=== PATIENT | male | born 1955 | race Caucasian/White ===

== ENCOUNTER 2019-03-07 04:28 | Emergency (ER) | payer MEDICARE ==
[~2019-03-07] VITALS: Ht 190.5 cm; Wt 123.0 kg
[2019-03-07] MEDS ORDERED: morphine 4 MG/ML inj SYRINge IV ONE (04:40)
[2019-03-07] MEDS ORDERED: ondansetron/PF 4mg/2ml inj IV ONE (04:40)
[2019-03-07 05:13] LABS: BASOPHILS # (AUTO) 0.1 X10'3 (0-0.2); BASOPHILS % (AUTO) 0.9 % (0-1); EOSINOPHILS # (AUTO) 0.2 X10'3 (0-0.9); EOSINOPHILS % (AUTO) 1.9 % (0-6); HEMATOCRIT 44.9 % (42.0-52.0); HEMOGLOBIN 15.4 g/dl (14.0-17.9); LYMPHOCYTES # (AUTO) 1.2 X10'3 (1.1-4.8); LYMPHOCYTES % (AUTO) 13.7 % (21-51); MEAN CORPUSCULAR HEMOGLOBIN 33.1 PG (27.0-31.0); MEAN CORPUSCULAR HGB CONC 34.3 g/dL (33.0-36.5); MEAN CORPUSCULAR VOLUME 96.5 FL (78-98); MEAN PLATELET VOLUME 9.2 FL (7.4-10.4); MONOCYTES # (AUTO) 0.6 X10'3 (0-0.9); NEUTROPHILS # (AUTO) 6.5 X10'3 (1.8-7.7); NEUTROPHILS % (AUTO) 76.5 % (42-75); PLATELET COUNT 171 X10'3 (140-440); RED BLOOD COUNT 4.65 X10'6 (4.70-6.10); RED CELL DISTRIBUTION WIDTH 14.8 % (11.5-14.5); WHITE BLOOD COUNT 8.5 X10'3 (4.5-11.0)
[2019-03-07 05:21] LABS: PARTIAL THROMBOPLASTIN TIME 31 SECONDS (22-32)
[2019-03-07 05:29] LABS: ALANINE AMINOTRANSFERASE 39 U/L (12-78); ALBUMIN 3.6 G/DL (3.4-5.0); ALBUMIN/GLOBULIN RATIO 0.9 (1.1-1.5); ALKALINE PHOSPHATASE 133 IU/L (46-116); ANION GAP 6 (8-16); ASPARTATE AMINO TRANSFERASE 37 U/L (10-37); BILIRUBIN,TOTAL 1.4 MG/DL (0.1-1.0); BLOOD UREA NITROGEN 16 MG/DL (7-18); BUN/CREATININE RATIO 15.7 (5.4-32.0); CALCIUM 9.6 MG/DL (8.5-10.1); CHLORIDE 105 MMOL/L (99-107); CREATININE 1.02 MG/DL (0.60-1.10); GLUCOSE 109 MG/DL (70-104); SODIUM 139 MMOL/L (135-145); TOTAL CARBON DIOXIDE 28.1 MMOL/L (24-32); TOTAL PROTEIN 7.4 G/DL (6.4-8.2); eGFR 74 ML/MIN
[2019-03-07] MEDS ORDERED: ketorolac trometh. 30mg/ml inj. IV ONE (05:35)
[2019-03-07] MEDS ORDERED: HYDR-3965 PO (06:21)
[2019-03-07 08:23] VITALS: BP 141/69
== END 2019-03-07 08:30 | disposition home or self-care (01) ==
LOC: ER 04:29
DX: R07.89 Other chest pain (principal); I25.10 Atherosclerotic heart disease of native coronary artery without angina pectoris; E78.00 Pure hypercholesterolemia, unspecified; I10 Essential (primary) hypertension; I25.2 Old myocardial infarction; E07.9 Disorder of thyroid, unspecified; N40.0 Benign prostatic hyperplasia without lower urinary tract symptoms; C85.90 Non-Hodgkin lymphoma, unspecified, unspecified site; Z98.61 Coronary angioplasty status; Z59.0 Homelessness; Z88.0 Allergy status to penicillin; Z79.899 Other long term (current) drug therapy
CPT/HCPCS: 36415; 71045; 80053; 84484; 85025; 85610; 85730; 93005; 96374; 96375; 99284; J1885; J2270; J2405

== ENCOUNTER 2021-06-19 19:30 | Emergency (ER) | payer MEDICARE ==
[~2021-06-19] VITALS: Ht 177.8 cm; Wt 131.0 kg
[2021-06-19 20:21] LABS: BASOPHILS # (AUTO) 0.1 X10'3 (0-0.2); BASOPHILS % (AUTO) 0.7 % (0-1); EOSINOPHILS # (AUTO) 0.3 X10'3 (0-0.9); EOSINOPHILS % (AUTO) 4.1 % (0-6); HEMATOCRIT 32.1 % (42.0-52.0); HEMOGLOBIN 10.9 g/dl (14.0-17.9); LYMPHOCYTES # (AUTO) 1.8 X10'3 (1.1-4.8); MEAN CORPUSCULAR HEMOGLOBIN 32.9 PG (27.0-31.0); MEAN CORPUSCULAR HGB CONC 34.1 g/dL (33.0-36.5); MEAN CORPUSCULAR VOLUME 96.7 FL (78-98); MEAN PLATELET VOLUME 8.5 FL (7.4-10.4); MONOCYTES # (AUTO) 0.7 X10'3 (0-0.9); MONOCYTES % (AUTO) 8.6 % (2-12); NEUTROPHILS # (AUTO) 4.8 X10'3 (1.8-7.7); NEUTROPHILS % (AUTO) 63.6 % (42-75); PLATELET COUNT 184 X10'3 (140-440); RED BLOOD COUNT 3.32 X10'6 (4.70-6.10); RED CELL DISTRIBUTION WIDTH 15.9 % (11.5-14.5); WHITE BLOOD COUNT 7.6 X10'3 (4.5-11.0)
[2021-06-19 20:47] LABS: ALANINE AMINOTRANSFERASE 33 U/L (12-78); ALBUMIN 3.6 G/DL (3.4-5.0); ALKALINE PHOSPHATASE 115 IU/L (46-116); ANION GAP 13 (8-16); ASPARTATE AMINO TRANSFERASE 30 U/L (10-37); BILIRUBIN,TOTAL 0.9 MG/DL (0.1-1.0); BLOOD UREA NITROGEN 23 MG/DL (7-18); BUN/CREATININE RATIO 21.9 (5.4-32.0); CALCIUM 8.9 MG/DL (8.5-10.1); CHLORIDE 103 MMOL/L (99-107); CREATININE 1.05 MG/DL (0.60-1.10); GLUCOSE 103 MG/DL (70-104); SODIUM 140 MMOL/L (135-145); TOTAL CARBON DIOXIDE 24.3 MMOL/L (24-32); TOTAL PROTEIN 7.2 G/DL (6.4-8.2); eGFR 71 ML/MIN
[2021-06-19] MEDS ORDERED: LIDOcaine 1.5% w/epinephrine 1:200,000 5ml ampul IJ ONE (21:50)
[2021-06-19] MEDS ORDERED: LIDOcaine 1% W/epiNEPHrine 1:100,000 20ml vial IJ ONE (21:55)
[2021-06-19] MEDS ORDERED: CEPH-585 PO (22:37)
[2021-06-19 22:51] VITALS: BP 99/61
== END 2021-06-19 22:55 | disposition home or self-care (01) ==
LOC: ER 19:31
DX: S01.01XA Laceration without foreign body of scalp, initial encounter (principal); S09.90XA Unspecified injury of head, initial encounter; R06.09 Other forms of dyspnea; I25.10 Atherosclerotic heart disease of native coronary artery without angina pectoris; E78.00 Pure hypercholesterolemia, unspecified; I10 Essential (primary) hypertension; I25.2 Old myocardial infarction; Z95.5 Presence of coronary angioplasty implant and graft; Z88.0 Allergy status to penicillin; Z79.2 Long term (current) use of antibiotics; Z59.00 Homelessness unspecified; Z79.82 Long term (current) use of aspirin; W19.XXXA Unspecified fall, initial encounter; Y93.89 Activity, other specified; Y92.89 Other specified places as the place of occurrence of the external cause; Y99.8 Other external cause status
CPT/HCPCS: 12004; 36415; 70450; 71045; 80053; 83880; 84484; 85025; 85610; 93005; 99285

== ENCOUNTER 2024-01-01 11:35 | Day surgery (SDC) | payer MEDICARE ==
[~2024-01-01] VITALS: Ht 180.3 cm; Wt 136.8 kg
[2024-01-01] MEDS ORDERED: [UNRECOGNIZED DRUG - REMARK] IV ONE (12:00)
[2024-01-01] MEDS ORDERED: atropine 0.1mg/ml 10ml syringe IV PRN ×2 (12:00→12:05)
[2024-01-01] MEDS ORDERED: normal saline 500ml IV soln 500 ML IV SCH (12:05)
[2024-01-01] MEDS ORDERED: metoprolol tartrate 1mg/ml inj IV PRN (12:05)
[2024-01-01] MEDS ORDERED: nitroGLYCERIN 0.4mg SUBLingual tab SL PRN (12:05)
[2024-01-01] MEDS ORDERED: DOBUTamine-DoBUTrex 500mg/D5W 250 ML IV SCH (12:05)
[2024-01-01 12:25] VITALS: BP 117/63; PULSE 76; RESP 16; TEMP 98.1; O2SAT 92
[2024-01-01 13:36] VITALS: BP 130/67
== END 2024-01-01 13:50 | disposition home or self-care (01) ==
LOC: SSTAY O 11:35
PROVIDERS: ATTEND Internal Medicine Interventional Cardiology
DX: I08.3 Combined rheumatic disorders of mitral, aortic and tricuspid valves (principal); I11.0 Hypertensive heart disease with heart failure; I50.9 Heart failure, unspecified; I25.10 Atherosclerotic heart disease of native coronary artery without angina pectoris; E78.5 Hyperlipidemia, unspecified; G47.33 Obstructive sleep apnea (adult) (pediatric); E66.3 Overweight; I42.9 Cardiomyopathy, unspecified; Z79.82 Long term (current) use of aspirin; Z79.890 Hormone replacement therapy; Z79.899 Other long term (current) drug therapy; Z95.5 Presence of coronary angioplasty implant and graft; Z68.41 Body mass index [BMI] 40.0-44.9, adult; Z88.0 Allergy status to penicillin; Z88.8 Allergy status to other drugs, medicaments and biological substances
CPT/HCPCS: C8929; J7030; 93306

== ENCOUNTER 2024-02-19 09:59 | Day surgery (SDC) | payer MEDICARE ==
[2024-02-15 11:27] LABS: BASOPHILS # (AUTO) 0.1 X10'3 (0-0.2); BASOPHILS % (AUTO) 0.7 % (0-1); EOSINOPHILS # (AUTO) 0.2 X10'3 (0-0.9); EOSINOPHILS % (AUTO) 2.2 % (0-6); HEMATOCRIT 42.4 % (42.0-52.0); HEMOGLOBIN 14.5 g/dl (14.0-17.9); LYMPHOCYTES # (AUTO) 1.5 X10'3 (1.1-4.8); LYMPHOCYTES % (AUTO) 17.9 % (21-51); MEAN CORPUSCULAR HEMOGLOBIN 31.2 PG (27.0-31.0); MEAN CORPUSCULAR HGB CONC 34.1 g/dL (33.0-36.5); MEAN CORPUSCULAR VOLUME 91.7 FL (78-98); MEAN PLATELET VOLUME 9.3 FL (7.4-10.4); MONOCYTES # (AUTO) 0.5 X10'3 (0-0.9); MONOCYTES % (AUTO) 5.4 % (2-12); NEUTROPHILS # (AUTO) 6.2 X10'3 (1.8-7.7); NEUTROPHILS % (AUTO) 73.8 % (42-75); PLATELET COUNT 171 X10'3 (140-440); RED BLOOD COUNT 4.63 X10'6 (4.70-6.10); RED CELL DISTRIBUTION WIDTH 14.8 % (11.5-14.5); WHITE BLOOD COUNT 8.5 X10'3 (4.5-11.0)
[2024-02-15 11:33] LABS: APTT 33 SECONDS (22-32); PROTHROMBIN TIME 10.8 SECONDS (9.0-12.0)
[2024-02-15 12:16] LABS: ALBUMIN 3.5 G/DL (3.4-5.0); ANION GAP 11 (8-16); BLOOD UREA NITROGEN 17 MG/DL (7-18); BUN/CREATININE RATIO 15.9 (10.0-20.0); CALCIUM 9.1 MG/DL (8.5-10.1); CHLORIDE 102 MMOL/L (99-107); CHOL/HDL RATIO 2.9 (0.00-4.99); CHOLESTEROL 185 MG/DL (0-200); CREATININE 1.07 MG/DL (0.60-1.10); GLUCOSE 122 MG/DL (70-104); HDL CHOLESTEROL 64 MG/DL (35-60); LDL CHOLESTEROL 108 MG/DL (50-100); POTASSIUM 4.2 MMOL/L (3.5-5.1); SODIUM 138 MMOL/L (135-145); TOTAL CARBON DIOXIDE 25.3 MMOL/L (24-32); TRIGLYCERIDES 89 MG/DL (20-135); eGFR 69 ML/MIN
[2024-02-19] VITALS (8 sets, daily range): BP systolic 139–154; BP diastolic 73–93; PULSE 73–81; RESP 16; TEMP 98; O2SAT 94–97
[~2024-02-19] VITALS: Ht 180.3 cm; Wt 135.3 kg
[2024-02-19] MEDS: normal saline 1,000 ML IV SCH (10:35)
[2024-02-19] MEDS ORDERED: LOSA50TA64 PO (10:46)
[2024-02-19] MEDS ORDERED: LEVO88TA7 PO (10:46)
[2024-02-19] MEDS ORDERED: CARV6.253 PO (10:46)
[2024-02-19] MEDS ORDERED: DIPH-1212 PO (10:46)
[2024-02-19] MEDS ORDERED: ASPI-1265 PO (10:46)
[2024-02-19] MEDS ORDERED: PRED20TA PO (10:46)
[2024-02-19] MEDS ORDERED: EMPA10TA PO (10:46)
[2024-02-19] MEDS ORDERED: ATOR40TA72 PO (10:46)
[2024-02-19] MEDS: diphenhydrAMINE 25mg capsule PO PRN (11:39)
[2024-02-19] MEDS: LORazepam 0.5 MG tablet PO PRN (11:40)
[2024-02-19] MEDS ORDERED: iohexol 350MG/ML 100ml bottle IV ONE (12:44)
[2024-02-19] MEDS ORDERED: verapamil 2.5 mg/ml inj IV ONE (12:44)
[2024-02-19] MEDS ORDERED: midazolam 1 mg/ML 2ml injection ONE (12:44)
[2024-02-19] MEDS ORDERED: fentaNYL/PF 50MCG/1 ML 2ML syringe ONE (12:44)
[2024-02-19] MEDS ORDERED: LIDOcaine 1% (10mg/ml) 2ml vial ONE (12:44)
[2024-02-19] MEDS ORDERED: nitroGLYCERIN 500mcg/5mL D5W 5 ML IV ONE (12:46)
[2024-02-19] MEDS ORDERED: heparin 1,000unit/ml 10ml vial 10 ML ONE (12:50)
[2024-02-19] MEDS ORDERED: nitroGLYCERIN 0.4mg SUBLingual tab SL ONE (13:17)
[2024-02-19 14:31] LABS: ISTAT HGB ART 13.9 g/dl (14.0-17.9); ISTAT Hct ART 41 %PCV (42-52); ISTAT O2 SATURATION ARTERIAL 95 % (95-98); ISTAT SOURCE BLNK
[2024-02-19] MEDS ORDERED: HYDROcodone/acetaminophen 10/325mg tab PO PRN (14:40)
[2024-02-19] MEDS ORDERED: HYDROcodone/acetaminophen 5mg/325mg tablet PO PRN (14:40)
[2024-02-20 09:57] LABS: ISTAT HGB MIX 14.6 g/dl (14.0-17.9); ISTAT Hct MIX 43 %PCV (42-52); ISTAT O2 SATURATION MIX VENOUS 70 % (60-80); ISTAT SOURCE BLNK
== END 2024-02-19 16:10 | disposition home or self-care (01) ==
LOC: SSTAY O 09:59
PROVIDERS: ATTEND Student in an Organized Health Care Education/Training Program
DX: I35.0 Nonrheumatic aortic (valve) stenosis (principal); I25.10 Atherosclerotic heart disease of native coronary artery without angina pectoris; I11.0 Hypertensive heart disease with heart failure; I50.9 Heart failure, unspecified; E78.00 Pure hypercholesterolemia, unspecified; I42.9 Cardiomyopathy, unspecified; G47.33 Obstructive sleep apnea (adult) (pediatric); Z98.890 Other specified postprocedural states; Z88.0 Allergy status to penicillin; Z91.041 Radiographic dye allergy status
CPT/HCPCS: 36415; 80048; 80061; 82803; 85014; 85025; 85610; 85730; 93005; 93460; A6258; A6402; C1751; C1894; J1644; J2001; J2250; J3010; J3490; J7030; Q0163; Q9967; Z7610; 99152; 99153

== ENCOUNTER 2024-06-23 05:34 | Inpatient (IN) | payer MEDICARE ==
[2024-06-16 14:53] LABS: BASOPHILS # (AUTO) 0.1 X10'3 (0-0.2); BASOPHILS % (AUTO) 0.7 % (0-1); EOSINOPHILS # (AUTO) 0.3 X10'3 (0-0.9); EOSINOPHILS % (AUTO) 3.2 % (0-6); LYMPHOCYTES # (AUTO) 1.9 X10'3 (1.1-4.8); LYMPHOCYTES % (AUTO) 21.4 % (21-51); MEAN CORPUSCULAR HEMOGLOBIN 31.8 PG (27.0-31.0); MEAN CORPUSCULAR HGB CONC 34.1 g/dL (33.0-36.5); MEAN CORPUSCULAR VOLUME 93.3 FL (78-98); MEAN PLATELET VOLUME 9.5 FL (7.4-10.4); MONOCYTES # (AUTO) 0.6 X10'3 (0-0.9); NEUTROPHILS # (AUTO) 5.9 X10'3 (1.8-7.7); NEUTROPHILS % (AUTO) 67.7 % (42-75); PRE OP HEMATOCRIT 43.8 % (42.0-52.0); PRE OP HEMOGLOBIN 14.9 g/dL (14.0-17.9); PRE OP PLATELET COUNT 164 X10'3 (140-440); PRE OP WHITE BLOOD COUNT 8.7 10'3 (4.8-10.8); RED BLOOD COUNT 4.69 X10'6 (4.70-6.10); RED CELL DISTRIBUTION WIDTH 14.2 % (11.5-14.5)
[2024-06-16 14:57] LABS: BILIRUBIN,URINE NEGATIVE (Neg); CLARITY,URINE CLEAR (Clear); COLOR,URINE YELLOW (Yellow); GLUCOSE, URINE >=1000 mg/dl (Neg); KETONES,URINE NEGATIVE (Neg); LEUKOCYTE ESTERASE ,URINE NEGATIVE (Neg); NITRITES, URINE NEGATIVE (Neg); OCCULT BLOOD,URINE SMALL (Neg); PROTEIN,URINE NEGATIVE (Neg); UROBILINOGEN,URINE 0.2 E.U/dL (0.2-1.0)
[2024-06-16 15:06] LABS: UA COLLECTION TYPE CLN CATCH MIDSTREAM
[2024-06-16 15:13] LABS: BACTERIA,URINE NONE SEEN /HPF (Neg); RBC,URINE 0-2 /HPF (0-2); SQUAMOUS EPITHELIAL CELL,UR NONE SEEN /LPF (FEW); WBC,URINE NONE SEEN /HPF (0-4)
[2024-06-16 15:27] LABS: ALBUMIN 3.7 G/DL (3.4-5.0); ALBUMIN/GLOBULIN RATIO 0.9 (1.1-1.5); ALKALINE PHOSPHATASE 141 IU/L (46-116); BLOOD UREA NITROGEN 18 MG/DL (7-18); BUN/CREATININE RATIO 16.8 (10.0-20.0); CALCIUM 9.2 MG/DL (8.5-10.1); CHLORIDE 107 MMOL/L (99-107); CREATININE 1.07 MG/DL (0.60-1.10); PRE OP ALT 25 U/L (30-65); PRE OP ANION GAP 9 (8-16); PRE OP AST 18 U/L (10-37); PRE OP BILIRUB, TOTAL 1.1 MG/DL (0.0-1.0); PRE OP GLUCOSE 107 MG/DL (70-104); PRE OP POTASSIUM 3.7 MMOL/L (3.4-5.1); PRE OP SODIUM 142 MMOL/L (135-145); TOTAL CARBON DIOXIDE 26.3 MMOL/L (24-32); TOTAL PROTEIN 7.8 G/DL (6.4-8.2); eGFR 69 ML/MIN
[2024-06-16 15:33] LABS: HEMOGLOBIN A1C 5.5 % (4.5-6.2)
[2024-06-16 17:31] LABS: PRE OP PROTIME 10.8 SECONDS (9.0-12.0)
[2024-06-17 06:58] LABS: ABG BASE EXCESS -2.1 mmol/L (-2.0-3.0); ABG HCO3 21.6 mmol/L (21.0-28.0); ABG OXYGEN SATURATION 95.2 % (94.0-98.0); ABG PO2 (T) 77.3 mmHg (83.0-108.0); ALLEN'S TEST POSITIVE; FCOHb 0.1 % (0.5-1.5); FHHb 4.8 % (0.0-5.0); FLOW 0 L/min; FMetHb 0.3 % (0.0-1.5); FO2Hb 94.8 % (94.0-98.0); MODE RA; TOTAL HEMOGLOBIN 14.8 G/dl (13.5-17.5)
[~2024-06-23] VITALS: Ht 177.8 cm; Wt 147.2 kg
[2024-06-23] VITALS (22 sets, daily range): BP systolic 55–143; BP diastolic 11–71; PULSE 65–85; RESP 12–39; TEMP 97.5; O2SAT 95–99
[2024-06-23] MEDS: Cefazolin 3 GM/100ML NS IVPB 100 ML IV ONE (05:30)
[~2024-06-23 05:34] MED LIST: ASPI-1265 PO; ATOR40TA72 PO; CARV6.253 PO; EMPA10TA PO; LEVO88TA7 PO; LOSA50TA64 PO
[2024-06-23] MEDS: mupirocin 2% nasal ointment 1gm UD NS ONE (06:12)
[2024-06-23] MEDS: DOCUMENT DATE & TIME OF BETA-BLOCKER PO ONE (06:13)
[2024-06-23] MEDS: famotidine 20mg tablet PO ONE (06:13)
[2024-06-23] MEDS: metoprolol tartrate 12.5mg (1/2 tablet) PO ONE (06:13)
[2024-06-23] MEDS: ringers solution, lacted 1,000 ML IV SCH (06:14)
[2024-06-23] MEDS: VANCOMYCIN 1,500MG inj. 1,500 MG in normal saline 500ml IV soln 300 ML IV ONE (06:14)
[2024-06-23] MEDS ORDERED: epiNEPHrine 1 mg/ml inj ONE (06:45)
[2024-06-23] MEDS ORDERED: ceFAZolin 1000mg inj ONE (06:46)
[2024-06-23] MEDS ORDERED: BUPIVAcaine 0.5% inj/PF 30 ML ONE (06:46)
[2024-06-23] MEDS ORDERED: vancomycin 1,000mg inj ONE (06:46)
[2024-06-23] MEDS: ceFAZolin 1000mg inj IR ONE (07:22)
[2024-06-23] MEDS ORDERED: SUfentanil 50mcg/ml 1ml amp IV ONE ×2 (07:59)
[2024-06-23] MEDS ORDERED: albuterol 2.5 MG/3 ML nebule CONTNEB PRN (08:15)
[2024-06-23] MEDS ORDERED: LORazepam 2 mg/ml vial ONE (08:26)
[2024-06-23] MEDS: LORazepam 2 mg/ml vial IV ONE (08:30)
[2024-06-23] MEDS ORDERED: isoflurane 100ml inhalation liquid IH ONE (08:30)
[2024-06-23 09:24] LABS: ABG BASE EXCESS -2.3 mmol/L (-2.0-3.0); ABG HCO3 22.1 mmol/L (21.0-28.0); ABG OXYGEN SATURATION 99.3 % (94.0-98.0); ABG PCO2 36.8 mmHg (35.0-48.0); ABG PH 7.396 (7.350-7.450); ABG PO2 190.1 mmHg (83.0-108.0); CL (ABG) 103 mmol/L (98-107); FCOHb 0.3 % (0.5-1.5); FHHb 0.7 % (0.0-5.0); FMetHb 0.3 % (0.0-1.5); FO2Hb 98.7 % (94.0-98.0); GLUCOSE (ABG) 101 mg/dl (65-95); IONIZED CA (ABG) 1.15 mmol/L (1.15-1.33); TOTAL HEMOGLOBIN 13.8 G/dl (13.5-17.5)
[2024-06-23] MEDS ORDERED: propofol inj 20 ML IV ONE (09:31)
[2024-06-23] MEDS ORDERED: LIDOcaine 2% (20mg/ml) 5ml vial ONE (09:31)
[2024-06-23] MEDS ORDERED: rocuronium 10mg/ml inj IV ONE ×2 (09:31)
[2024-06-23 09:32] LABS: ACT @ 1.70 U 307 SEC (193-297); ACT @ 2.84 U 467 SEC (260-420); BASELINE ACT 144 SEC (101-148)
[2024-06-23 10:20] LABS: ABG BASE EXCESS -0.2 mmol/L (-2.0-3.0); ABG HCO3 24.2 mmol/L (21.0-28.0); ABG OXYGEN SATURATION 99.2 % (94.0-98.0); ABG PCO2 38.5 mmHg (35.0-48.0); ABG PH 7.416 (7.350-7.450); CL (ABG) 98 mmol/L (98-107); FCOHb 0.3 % (0.5-1.5); FHHb 0.8 % (0.0-5.0); FMetHb 0.1 % (0.0-1.5); FO2Hb 98.8 % (94.0-98.0); GLUCOSE (ABG) 96 mg/dl (65-95); IONIZED CA (ABG) 0.97 mmol/L (1.15-1.33); K (ABG) 3.6 mmol/L (3.40-4.50); TOTAL HEMOGLOBIN 10.5 G/dl (13.5-17.5)
[2024-06-23 10:49] LABS: ABG BASE EXCESS VENOUS -2.2 mmol/L (-2.0-3.0); ABG HCO3 VENOUS 22.6 mmol/L (22.0-29.0); ABG PCO2 VENOUS 38.6 mmHg (38.0-54.0); ABG PH (VENOUS) 7.385 (7.320-7.430); ABG PO2 VENOUS 49.7 mmHg (23.0-48.0); CL (ABG) 100 mmol/L (98-107); FCOHb VENOUS 0.3 % (0.5-1.5); FO2Hb VENOUS 83.7 % (0-80.0); GLUCOSE (ABG) 87 mg/dl (65-95); IONIZED CA (ABG) 1.01 mmol/L (1.15-1.33); K (ABG) 4.9 mmol/L (3.40-4.50); TOTAL HEMOGLOBIN 10.1 G/dl (13.5-17.5)
[2024-06-23 11:32] LABS: ABG BASE EXCESS 0.8 mmol/L (-2.0-3.0); ABG HCO3 24.6 mmol/L (21.0-28.0); ABG OXYGEN SATURATION 99.1 % (94.0-98.0); ABG PCO2 35.8 mmHg (35.0-48.0); ABG PH 7.455 (7.350-7.450); CL (ABG) 99 mmol/L (98-107); FCOHb 0.3 % (0.5-1.5); FHHb 0.9 % (0.0-5.0); FMetHb 0.2 % (0.0-1.5); FO2Hb 98.6 % (94.0-98.0); GLUCOSE (ABG) 111 mg/dl (65-95); IONIZED CA (ABG) 1.26 mmol/L (1.15-1.33); K (ABG) 4.8 mmol/L (3.40-4.50); TOTAL HEMOGLOBIN 8.4 G/dl (13.5-17.5)
[2024-06-23 12:13] LABS: ABG BASE EXCESS 0.8 mmol/L (-2.0-3.0); ABG HCO3 24.7 mmol/L (21.0-28.0); ABG OXYGEN SATURATION 93.5 % (94.0-98.0); ABG PH 7.443 (7.350-7.450); CL (ABG) 102 mmol/L (98-107); FCOHb 0.3 % (0.5-1.5); FHHb 6.5 % (0.0-5.0); FMetHb 0.1 % (0.0-1.5); FO2Hb 93.1 % (94.0-98.0); GLUCOSE (ABG) 124 mg/dl (65-95); IONIZED CA (ABG) 1.08 mmol/L (1.15-1.33); K (ABG) 4.6 mmol/L (3.40-4.50); TOTAL HEMOGLOBIN 11.1 G/dl (13.5-17.5)
[2024-06-23 12:16] LABS: ACTIVATED CLOTTING TIME 121 SEC (101-148)
[2024-06-23] MEDS ORDERED: dextrose 50%-water 50ml dispensing syringe IV PRN (12:20)
[2024-06-23] MEDS ORDERED: ondansetron/PF 4mg/2ml inj IV PRN (12:20)
[2024-06-23] MEDS ORDERED: magnesium sulf-water 2g/50mL 50 ML IV PRN (12:20)
[2024-06-23] MEDS ORDERED: sodium phosphate inj. 15 MMOL in dextrose 5%-water 250 ML IV PRN (12:20)
[2024-06-23] MEDS ORDERED: potassium CL 10mEq/100ml bag 100 ML IV PRN (12:20)
[2024-06-23] MEDS ORDERED: potassium Cl 40MEQ/270ML bag 250 ML IV PRN (12:20)
[2024-06-23] MEDS ORDERED: bisacodyl 10mg suppository rectal RC PRN (12:20)
[2024-06-23] MEDS ORDERED: sodium phosphate inj. 30 MMOL in dextrose 5%-water 250 ML IV PRN (12:20)
[2024-06-23] MEDS ORDERED: metoclopramide 5 mg/ml inj IV PRN (12:20)
[2024-06-23] MEDS ORDERED: potassium Cl 40MEQ/1/2NS 520ml 520 ML IV PRN (12:20)
[2024-06-23] MEDS ORDERED: magnesium sulf-water 4G/100mL 100 ML IV PRN (12:20)
[2024-06-23] MEDS ORDERED: niCARDipine-NS 40mg/200ml IVPB 200 ML IV PRN (12:20)
[2024-06-23] MEDS ORDERED: insulin glargine (Lantus) pen - multi-dose SQ PRN (12:20)
[2024-06-23] MEDS ORDERED: mineral oil 133ml enema RC PRN (12:20)
[2024-06-23] MEDS: morphine 4 MG/ML inj SYRINge IV PRN (12:48)
[2024-06-23 13:02] LABS: ABG BASE EXCESS -5.5 mmol/L (-2.0-3.0); ABG HCO3 18.3 mmol/L (21.0-28.0); ABG OXYGEN SATURATION 99.7 % (94.0-98.0); ABG PCO2 (T) 29.5 mmHg (35.0-48.0); ABG PH (T) 7.407 (7.350-7.450); ABG PO2 (T) 300.4 mmHg (83.0-108.0); FCOHb 0.7 % (0.5-1.5); FHHb 0.3 % (0.0-5.0); FMetHb 0.3 % (0.0-1.5); FO2Hb 98.7 % (94.0-98.0); MODE VENT - SIMV; PEEP 5 cm H2O; RESPIRATORY RATE 14 b/min; TIDAL VOLUME 650 mL; TOTAL HEMOGLOBIN 12.4 G/dl (13.5-17.5)
[2024-06-23] MEDS: Insulin Reg/NS 100units/100mL 100 ML IV SCH (13:18)
[2024-06-23] MEDS: nitroGLYCERIN-Tridil 50MG/D5W 250 ML IV SCH (13:19)
[2024-06-23] MEDS: sodium chloride 0.45% 1,000 ML IV SCH (13:19)
[2024-06-23 13:25] LABS: BASOPHILS % (AUTO) 0.3 % (0-1); EOSINOPHILS # (AUTO) 0.1 X10'3 (0-0.9); EOSINOPHILS % (AUTO) 0.8 % (0-6); HEMATOCRIT 34.4 % (42.0-52.0); HEMOGLOBIN 11.8 g/dl (14.0-17.9); LYMPHOCYTES # (AUTO) 1.4 X10'3 (1.1-4.8); LYMPHOCYTES % (AUTO) 12.7 % (21-51); MEAN CORPUSCULAR HEMOGLOBIN 32.2 PG (27.0-31.0); MEAN CORPUSCULAR HGB CONC 34.3 g/dL (33.0-36.5); MEAN CORPUSCULAR VOLUME 93.7 FL (78-98); MEAN PLATELET VOLUME 9.6 FL (7.4-10.4); MONOCYTES # (AUTO) 0.4 X10'3 (0-0.9); MONOCYTES % (AUTO) 3.2 % (2-12); NEUTROPHILS # (AUTO) 9.2 X10'3 (1.8-7.7); PLATELET COUNT 111 X10'3 (140-440); RED BLOOD COUNT 3.67 X10'6 (4.70-6.10); RED CELL DISTRIBUTION WIDTH 14.2 % (11.5-14.5); WHITE BLOOD COUNT 11.1 X10'3 (4.5-11.0)
[2024-06-23 13:35] LABS: APTT 29 SECONDS (22-32); FIBRINOGEN 295 MG/DL (177-424); INR 1.1 INR; PROTHROMBIN TIME 11.9 SECONDS (9.0-12.0)
[2024-06-23 13:36] LABS: ALANINE AMINOTRANSFERASE 18 U/L (12-78); ALBUMIN 2.9 G/DL (3.4-5.0); ALBUMIN/GLOBULIN RATIO 1.2 (1.1-1.5); ALKALINE PHOSPHATASE 87 IU/L (46-116); ANION GAP 7 (8-16); ASPARTATE AMINO TRANSFERASE 39 U/L (10-37); BILIRUBIN,TOTAL 1.5 MG/DL (0.1-1.0); BLOOD UREA NITROGEN 18 MG/DL (7-18); BUN/CREATININE RATIO 19.1 (10.0-20.0); CALCIUM 7.4 MG/DL (8.5-10.1); CHLORIDE 106 MMOL/L (99-107); CREATININE 0.94 MG/DL (0.60-1.10); GLUCOSE 152 MG/DL (70-104); MAGNESIUM 3.7 MG/DL (1.5-2.4); PHOSPHORUS 2.8 MG/DL (2.3-4.5); POTASSIUM 4.3 MMOL/L (3.5-5.1); SODIUM 138 MMOL/L (135-145); TOTAL CARBON DIOXIDE 25.3 MMOL/L (24-32); TOTAL PROTEIN 5.3 G/DL (6.4-8.2); eCRCL 78 ML/MIN; eGFR 80 ML/MIN
[2024-06-23] MEDS: albumin (Human) 5% 250ml 250 ML IV PRN (13:44)
[2024-06-23] MEDS: potassium Cl 20mEq/100mL bag 100 ML IV PRN (14:05)
[2024-06-23] MEDS: NORepinephrine 8mg/ 250ml NS 250 ML IV PRN (14:13)
[2024-06-23] MEDS: ceFAZolin/D5W- 1GM premix 50 ML IV SCH (15:30)
[2024-06-23 19:13] LABS: BASOPHILS % (AUTO) 0.1 % (0-1); EOSINOPHILS % (AUTO) 0 % (0-6); HEMATOCRIT 29.3 % (42.0-52.0); HEMOGLOBIN 9.9 g/dl (14.0-17.9); LYMPHOCYTES # (AUTO) 0.4 X10'3 (1.1-4.8); LYMPHOCYTES % (AUTO) 2.7 % (21-51); MEAN CORPUSCULAR HEMOGLOBIN 31.8 PG (27.0-31.0); MEAN CORPUSCULAR HGB CONC 33.9 g/dL (33.0-36.5); MEAN CORPUSCULAR VOLUME 93.8 FL (78-98); MEAN PLATELET VOLUME 9.7 FL (7.4-10.4); MONOCYTES # (AUTO) 0.3 X10'3 (0-0.9); MONOCYTES % (AUTO) 2.1 % (2-12); NEUTROPHILS # (AUTO) 12.2 X10'3 (1.8-7.7); NEUTROPHILS % (AUTO) 95.1 % (42-75); PLATELET COUNT 114 X10'3 (140-440); RED BLOOD COUNT 3.12 X10'6 (4.70-6.10); RED CELL DISTRIBUTION WIDTH 14.3 % (11.5-14.5); WHITE BLOOD COUNT 12.9 X10'3 (4.5-11.0)
[2024-06-23] MEDS: vancomycin/NS 1 GM ADD-VANTAGE 250 ML IV SCH (19:20)
[2024-06-23] MEDS: sennosides/docusate sodium tablet PO SCH (19:20)
[2024-06-23] MEDS: mupirocin 2% nasal ointment 1gm UD NS SCH (19:20)
[2024-06-23] MEDS: atorvastatin 10mg tablet PO SCH (19:20)
[2024-06-23] MEDS: morphine 2 MG/ML inj. syringe IV PRN (19:21)
[2024-06-23 19:31] LABS: ALBUMIN 3.6 G/DL (3.4-5.0); ANION GAP 14 (8-16); BLOOD UREA NITROGEN 21 MG/DL (7-18); BUN/CREATININE RATIO 20.4 (10.0-20.0); CALCIUM 7.9 MG/DL (8.5-10.1); CHLORIDE 106 MMOL/L (99-107); CREATININE 1.03 MG/DL (0.60-1.10); GLUCOSE 156 MG/DL (70-104); MAGNESIUM 3.1 MG/DL (1.5-2.4); PHOSPHORUS 3.4 MG/DL (2.3-4.5); POTASSIUM 4.5 MMOL/L (3.5-5.1); SODIUM 140 MMOL/L (135-145); TOTAL CARBON DIOXIDE 20.5 MMOL/L (24-32); eCRCL 71 ML/MIN; eGFR 72 ML/MIN
[2024-06-23 19:45] LABS: ABG BASE EXCESS -5.6 mmol/L (-2.0-3.0); ABG HCO3 18.5 mmol/L (21.0-28.0); ABG PCO2 (T) 31.4 mmHg (35.0-48.0); ABG PH (T) 7.389 (7.350-7.450); ABG PO2 (T) 112.3 mmHg (83.0-108.0); FCOHb 0.2 % (0.5-1.5); FMetHb 0.3 % (0.0-1.5); FO2Hb 97.5 % (94.0-98.0); MODE VENT - CPAP; PEEP 5 cm H2O; TOTAL HEMOGLOBIN 10.4 G/dl (13.5-17.5)
[2024-06-23] MEDS ORDERED: VANCOMYCIN 1GM 200ML H20 (PEG) 200 ML IV SCH (20:00)
[2024-06-23 20:32] LABS: INR 1.1 INR; PROTHROMBIN TIME 11.1 SECONDS (9.0-12.0)
[2024-06-24] VITALS (25 sets, daily range): BP systolic 94–134; BP diastolic 7–80; PULSE 82–97; RESP 12–29; O2SAT 93–97
[2024-06-24] MEDS: HYDROcodone/acetaminophen 10/325mg tab PO PRN ×2 (04:09→08:04)
[2024-06-24 04:27] LABS: BASOPHILS % (AUTO) 0.1 % (0-1); EOSINOPHILS % (AUTO) 0 % (0-6); HEMATOCRIT 26.9 % (42.0-52.0); LYMPHOCYTES # (AUTO) 0.5 X10'3 (1.1-4.8); LYMPHOCYTES % (AUTO) 3.7 % (21-51); MEAN CORPUSCULAR HEMOGLOBIN 31.5 PG (27.0-31.0); MEAN CORPUSCULAR HGB CONC 33.5 g/dL (33.0-36.5); MEAN CORPUSCULAR VOLUME 93.9 FL (78-98); MEAN PLATELET VOLUME 9.3 FL (7.4-10.4); MONOCYTES # (AUTO) 0.7 X10'3 (0-0.9); NEUTROPHILS # (AUTO) 13.4 X10'3 (1.8-7.7); NEUTROPHILS % (AUTO) 91.2 % (42-75); PLATELET COUNT 128 X10'3 (140-440); RED BLOOD COUNT 2.87 X10'6 (4.70-6.10); RED CELL DISTRIBUTION WIDTH 14.2 % (11.5-14.5); WHITE BLOOD COUNT 14.7 X10'3 (4.5-11.0)
[2024-06-24 04:43] LABS: ALANINE AMINOTRANSFERASE 24 U/L (12-78); ALBUMIN 3.5 G/DL (3.4-5.0); ALBUMIN/GLOBULIN RATIO 1.3 (1.1-1.5); ALKALINE PHOSPHATASE 77 IU/L (46-116); ANION GAP 10 (8-16); ASPARTATE AMINO TRANSFERASE 48 U/L (10-37); BILIRUBIN,TOTAL 1.5 MG/DL (0.1-1.0); BLOOD UREA NITROGEN 22 MG/DL (7-18); BUN/CREATININE RATIO 20.6 (10.0-20.0); CALCIUM 7.6 MG/DL (8.5-10.1); CHLORIDE 107 MMOL/L (99-107); CREATININE 1.07 MG/DL (0.60-1.10); GLUCOSE 137 MG/DL (70-104); MAGNESIUM 3.4 MG/DL (1.5-2.4); PHOSPHORUS 4.2 MG/DL (2.3-4.5); POTASSIUM 4.8 MMOL/L (3.5-5.1); SODIUM 138 MMOL/L (135-145); TOTAL CARBON DIOXIDE 20.9 MMOL/L (24-32); TOTAL PROTEIN 6.2 G/DL (6.4-8.2); eCRCL 68 ML/MIN; eGFR 69 ML/MIN
[2024-06-24 07:17] LABS: ABG PO2 397.5 mmHg (83.0-108.0)
[2024-06-24] MEDS: metoprolol tartrate 12.5mg (1/2 tablet) PO SCH (07:43)
[2024-06-24] MEDS: aspirin 81mg tab.chew PO SCH (07:44)
[2024-06-24] MEDS: furosemide 40mg/4ml inj IV ONE (23:25)
[2024-06-25] VITALS (30 sets, daily range): BP systolic 88–129; BP diastolic 47–83; PULSE 80–92; RESP 13–23; O2SAT 92–98
[2024-06-25 02:28] LABS: BASOPHILS % (AUTO) 0.1 % (0-1); EOSINOPHILS % (AUTO) 0 % (0-6); HEMATOCRIT 27.4 % (42.0-52.0); LYMPHOCYTES % (AUTO) 5.1 % (21-51); MEAN CORPUSCULAR HEMOGLOBIN 31.5 PG (27.0-31.0); MEAN CORPUSCULAR VOLUME 95.4 FL (78-98); MEAN PLATELET VOLUME 9.9 FL (7.4-10.4); MONOCYTES # (AUTO) 1.5 X10'3 (0-0.9); MONOCYTES % (AUTO) 7.4 % (2-12); NEUTROPHILS # (AUTO) 17.3 X10'3 (1.8-7.7); NEUTROPHILS % (AUTO) 87.4 % (42-75); PLATELET COUNT 123 X10'3 (140-440); RED BLOOD COUNT 2.87 X10'6 (4.70-6.10); RED CELL DISTRIBUTION WIDTH 14.5 % (11.5-14.5); WHITE BLOOD COUNT 19.8 X10'3 (4.5-11.0)
[2024-06-25 02:45] LABS: ALBUMIN 3.4 G/DL (3.4-5.0); ANION GAP 10 (8-16); BLOOD UREA NITROGEN 37 MG/DL (7-18); BUN/CREATININE RATIO 23.7 (10.0-20.0); CALCIUM 7.9 MG/DL (8.5-10.1); CHLORIDE 98 MMOL/L (99-107); CREATININE 1.56 MG/DL (0.60-1.10); GLUCOSE 189 MG/DL (70-104); MAGNESIUM 2.7 MG/DL (1.5-2.4); PHOSPHORUS 4.9 MG/DL (2.3-4.5); SODIUM 130 MMOL/L (135-145); TOTAL CARBON DIOXIDE 22.4 MMOL/L (24-32); eCRCL 47 ML/MIN; eGFR 44 ML/MIN
[2024-06-25] MEDS: pantoprazole 40mg Tablet.DR PO SCH (07:22)
[2024-06-25] MEDS: levoTHYROXINE 88mcg tablet PO SCH (07:22)
[2024-06-25] MEDS: albumin (human) 25% 100 ML IV solution IV ONE ×2 (11:30→13:26)
[2024-06-25] MEDS: furosemide 20 MG/2 ML vial IV ONE (15:30)
[2024-06-25] MEDS: lactose-reduced food (Ensure Enlive) - 237ml bottle PO SCH (18:26)
[2024-06-25 20:41] LABS: BASOPHILS % (AUTO) 0.2 % (0-1); EOSINOPHILS % (AUTO) 0 % (0-6); HEMATOCRIT 23.3 % (42.0-52.0); HEMOGLOBIN 7.9 g/dl (14.0-17.9); LYMPHOCYTES # (AUTO) 0.5 X10'3 (1.1-4.8); LYMPHOCYTES % (AUTO) 3.1 % (21-51); MEAN CORPUSCULAR HGB CONC 33.7 g/dL (33.0-36.5); MEAN CORPUSCULAR VOLUME 94.8 FL (78-98); MEAN PLATELET VOLUME 10.5 FL (7.4-10.4); MONOCYTES # (AUTO) 0.9 X10'3 (0-0.9); MONOCYTES % (AUTO) 5.2 % (2-12); NEUTROPHILS # (AUTO) 16.1 X10'3 (1.8-7.7); NEUTROPHILS % (AUTO) 91.5 % (42-75); PLATELET COUNT 108 X10'3 (140-440); RED BLOOD COUNT 2.46 X10'6 (4.70-6.10); RED CELL DISTRIBUTION WIDTH 14.4 % (11.5-14.5); WHITE BLOOD COUNT 17.6 X10'3 (4.5-11.0)
[2024-06-25 20:56] LABS: ALANINE AMINOTRANSFERASE 26 U/L (12-78); ALBUMIN 3.7 G/DL (3.4-5.0); ALBUMIN/GLOBULIN RATIO 1.4 (1.1-1.5); ALKALINE PHOSPHATASE 76 IU/L (46-116); ANION GAP 11 (8-16); ASPARTATE AMINO TRANSFERASE 30 U/L (10-37); BILIRUBIN,TOTAL 1.3 MG/DL (0.1-1.0); BLOOD UREA NITROGEN 54 MG/DL (7-18); BUN/CREATININE RATIO 26.1 (10.0-20.0); CALCIUM 7.9 MG/DL (8.5-10.1); CHLORIDE 93 MMOL/L (99-107); CREATININE 2.07 MG/DL (0.60-1.10); GLUCOSE 202 MG/DL (70-104); MAGNESIUM 2.7 MG/DL (1.5-2.4); PHOSPHORUS 5.2 MG/DL (2.3-4.5); POTASSIUM 4.6 MMOL/L (3.5-5.1); SODIUM 125 MMOL/L (135-145); TOTAL CARBON DIOXIDE 21.3 MMOL/L (24-32); TOTAL PROTEIN 6.4 G/DL (6.4-8.2); eCRCL 35 ML/MIN; eGFR 32 ML/MIN
[2024-06-25] MEDS: albumin (Human) 5% 250ml 250 ML IV ONE (21:19)
[2024-06-25] MEDS: heparin, porcine 5000 units/ml vial SQ SCH (23:59)
[2024-06-26] VITALS (22 sets, daily range): BP systolic 101–148; BP diastolic 57–87; PULSE 80–101; RESP 13–20; TEMP 97.4–98.3; O2SAT 93–98
[2024-06-26 04:25] LABS: BASOPHILS % (AUTO) 0.3 % (0-1); EOSINOPHILS % (AUTO) 0 % (0-6); HEMATOCRIT 23.4 % (42.0-52.0); LYMPHOCYTES # (AUTO) 0.8 X10'3 (1.1-4.8); LYMPHOCYTES % (AUTO) 4.7 % (21-51); MEAN CORPUSCULAR HEMOGLOBIN 32.2 PG (27.0-31.0); MEAN CORPUSCULAR HGB CONC 34.2 g/dL (33.0-36.5); MEAN CORPUSCULAR VOLUME 94.2 FL (78-98); MEAN PLATELET VOLUME 10.7 FL (7.4-10.4); MONOCYTES # (AUTO) 1.2 X10'3 (0-0.9); NEUTROPHILS # (AUTO) 14.9 X10'3 (1.8-7.7); PLATELET COUNT 106 X10'3 (140-440); RED BLOOD COUNT 2.48 X10'6 (4.70-6.10); RED CELL DISTRIBUTION WIDTH 14.6 % (11.5-14.5)
[2024-06-26 04:49] LABS: ALBUMIN 3.7 G/DL (3.4-5.0); ANION GAP 11 (8-16); BLOOD UREA NITROGEN 48 MG/DL (7-18); BUN/CREATININE RATIO 31.8 (10.0-20.0); CHLORIDE 96 MMOL/L (99-107); CREATININE 1.51 MG/DL (0.60-1.10); GLUCOSE 154 MG/DL (70-104); MAGNESIUM 2.7 MG/DL (1.5-2.4); PHOSPHORUS 4.8 MG/DL (2.3-4.5); POTASSIUM 4.5 MMOL/L (3.5-5.1); SODIUM 129 MMOL/L (135-145); TOTAL CARBON DIOXIDE 21.7 MMOL/L (24-32); eCRCL 48 ML/MIN; eGFR 46 ML/MIN
[2024-06-26] MEDS: acetaminophen 325mg tablet PO PRN (20:12)
[2024-06-26] MEDS: magnesium hydroxide 30ml (MOM) UD suspension PO PRN (20:14)
[2024-06-27] VITALS (12 sets, daily range): BP systolic 120–133; BP diastolic 55–74; PULSE 79–98; RESP 16–26; TEMP 96.9–97.8; O2SAT 93–99
[2024-06-27 07:57] LABS: BASOPHILS % (AUTO) 0.1 % (0-1); EOSINOPHILS % (AUTO) 0.2 % (0-6); HEMATOCRIT 23.3 % (42.0-52.0); LYMPHOCYTES # (AUTO) 0.8 X10'3 (1.1-4.8); MEAN CORPUSCULAR HEMOGLOBIN 32.2 PG (27.0-31.0); MEAN CORPUSCULAR HGB CONC 34.2 g/dL (33.0-36.5); MEAN CORPUSCULAR VOLUME 93.9 FL (78-98); MEAN PLATELET VOLUME 10.5 FL (7.4-10.4); MONOCYTES # (AUTO) 1.2 X10'3 (0-0.9); MONOCYTES % (AUTO) 9.1 % (2-12); NEUTROPHILS # (AUTO) 11.2 X10'3 (1.8-7.7); NEUTROPHILS % (AUTO) 84.6 % (42-75); PLATELET COUNT 131 X10'3 (140-440); RED BLOOD COUNT 2.49 X10'6 (4.70-6.10); RED CELL DISTRIBUTION WIDTH 14.4 % (11.5-14.5); WHITE BLOOD COUNT 13.3 X10'3 (4.5-11.0)
[2024-06-27 08:17] LABS: ALBUMIN 3.3 G/DL (3.4-5.0); ANION GAP 6 (8-16); BLOOD UREA NITROGEN 41 MG/DL (7-18); BUN/CREATININE RATIO 38.3 (10.0-20.0); CALCIUM 8.3 MG/DL (8.5-10.1); CHLORIDE 100 MMOL/L (99-107); CREATININE 1.07 MG/DL (0.60-1.10); GLUCOSE 138 MG/DL (70-104); MAGNESIUM 2.9 MG/DL (1.5-2.4); PHOSPHORUS 2.2 MG/DL (2.3-4.5); POTASSIUM 4.2 MMOL/L (3.5-5.1); SODIUM 132 MMOL/L (135-145); TOTAL CARBON DIOXIDE 26.3 MMOL/L (24-32); eCRCL 68 ML/MIN; eGFR 69 ML/MIN
[2024-06-27 09:27] LABS: HYPOCHROMASIA 1+; PLATELET ESTIMATE DECREASED; POLYCHROMASIA 1+; TOTAL CELLS COUNTED 100
[2024-06-27] MEDS: furosemide 20MG tablet PO ONE (09:48)
[2024-06-27] MEDS: potassium Cl 20 mEq SR tablet PO PRN (22:01)
[2024-06-27] MEDS: Melatonin 3mg tablet PO PRN (22:06)
[2024-06-27] MEDS: acetaminophen 325mg tablet PO PRN (22:11)
[2024-06-27] MEDS: Neutra Phos packet PO PRN (22:12)
[2024-06-28] VITALS (8 sets, daily range): BP systolic 114–130; BP diastolic 59–75; PULSE 72–97; RESP 15–20; TEMP 96.8–98.5; O2SAT 97–98
[2024-06-28] MEDS: magnesium hydroxide 30ml (MOM) UD suspension PO PRN (05:26)
[2024-06-28 07:23] LABS: BASOPHILS % (AUTO) 0 % (0-1); EOSINOPHILS # (AUTO) 0.2 X10'3 (0-0.9); HEMATOCRIT 23.6 % (42.0-52.0); LYMPHOCYTES # (AUTO) 0.9 X10'3 (1.1-4.8); LYMPHOCYTES % (AUTO) 7.7 % (21-51); MEAN CORPUSCULAR HEMOGLOBIN 31.7 PG (27.0-31.0); MEAN CORPUSCULAR HGB CONC 33.7 g/dL (33.0-36.5); MEAN CORPUSCULAR VOLUME 94.1 FL (78-98); MEAN PLATELET VOLUME 9.8 FL (7.4-10.4); MONOCYTES # (AUTO) 1.2 X10'3 (0-0.9); MONOCYTES % (AUTO) 10.2 % (2-12); NEUTROPHILS % (AUTO) 80.1 % (42-75); PLATELET COUNT 162 X10'3 (140-440); RED BLOOD COUNT 2.51 X10'6 (4.70-6.10); RED CELL DISTRIBUTION WIDTH 14.6 % (11.5-14.5); WHITE BLOOD COUNT 11.3 X10'3 (4.5-11.0)
[2024-06-28 08:33] LABS: ALBUMIN 3.1 G/DL (3.4-5.0); ANION GAP 7 (8-16); BLOOD UREA NITROGEN 33 MG/DL (7-18); BUN/CREATININE RATIO 35.1 (10.0-20.0); CALCIUM 8.1 MG/DL (8.5-10.1); CHLORIDE 100 MMOL/L (99-107); CREATININE 0.94 MG/DL (0.60-1.10); GLUCOSE 137 MG/DL (70-104); MAGNESIUM 2.8 MG/DL (1.5-2.4); PHOSPHORUS 2.1 MG/DL (2.3-4.5); POTASSIUM 4.8 MMOL/L (3.5-5.1); SODIUM 134 MMOL/L (135-145); TOTAL CARBON DIOXIDE 27.5 MMOL/L (24-32); eCRCL 78 ML/MIN; eGFR 80 ML/MIN
[2024-06-28] MEDS: furosemide 40mg/4ml inj IV ONE (10:39)
[2024-07-02] MEDS ORDERED: lasix PO (13:08)
[2024-07-03] MEDS ORDERED: MELA3CAP2 PO (11:12)
[2024-07-03] MEDS ORDERED: HYDR-3973 PO (11:12)
[2024-07-03] MEDS ORDERED: ERGO500054 PO (11:12)
[2024-07-03] MEDS ORDERED: DOCU100C40 PO (11:12)
[2024-07-03] MEDS ORDERED: LEVO100T PO (11:12)
[2024-07-03] MEDS ORDERED: FURO-150 PO (11:12)
[2024-07-03] MEDS ORDERED: SODI1TAB2 PO (11:12)
[2024-07-03] MEDS ORDERED: OMEP20TA43 PO (11:12)
[2024-07-03] MEDS ORDERED: POLY119P2 PO (11:12)
== END 2024-06-28 17:23 | DRG 219 ==
LOC: PAS IN 05:34 → CICU 2S 11:57 → PCU 3S 06-26 12:24
PROVIDERS: ADMIT Thoracic Surgery (Cardiothoracic Vascular Surgery); ATTEND Thoracic Surgery (Cardiothoracic Vascular Surgery)
PROC: 021009W Bypass Coronary Artery, One Artery from Aorta with Autologous Venous Tissue, Open Approach (ICD-10-PCS; 2024-06-23)
PROC: 0210099 Bypass Coronary Artery, One Artery from Left Internal Mammary with Autologous Venous Tissue, Open Approach (ICD-10-PCS; 2024-06-23)
PROC: 06BQ4ZZ Excision of Left Saphenous Vein, Percutaneous Endoscopic Approach (ICD-10-PCS; 2024-06-23)
PROC: 5A1221Z Performance of Cardiac Output, Continuous (ICD-10-PCS; 2024-06-23)
PROC: B24BZZ4 Ultrasonography of Heart with Aorta, Transesophageal (ICD-10-PCS; 2024-06-23)
PROC: 30233R1 Transfusion of Nonautologous Platelets into Peripheral Vein, Percutaneous Approach (ICD-10-PCS; 2024-06-23)
PROC: 02RF08Z Replacement of Aortic Valve with Zooplastic Tissue, Open Approach (ICD-10-PCS; principal; 2024-06-23 08:30)
DX: T82.855A Stenosis of coronary artery stent, initial encounter (principal); N17.0 Acute kidney failure with tubular necrosis; R57.1 Hypovolemic shock; Z68.41 Body mass index [BMI] 40.0-44.9, adult; D62 Acute posthemorrhagic anemia; I35.0 Nonrheumatic aortic (valve) stenosis; I25.10 Atherosclerotic heart disease of native coronary artery without angina pectoris; E66.01 Morbid (severe) obesity due to excess calories; I10 Essential (primary) hypertension; E11.9 Type 2 diabetes mellitus without complications; Y83.8 Other surgical procedures as the cause of abnormal reaction of the patient, or of later complication, without mention of misadventure at the time of the procedure; Y92.89 Other specified places as the place of occurrence of the external cause; Z88.0 Allergy status to penicillin; Z91.041 Radiographic dye allergy status
CPT/HCPCS: 36415; 36430; 36600; 71045; 71046; 80048; 80053; 81001; 82330; 82435; 82803; 82947; 82948; 83036; 83735; 84100; 84132; 84295; 84443; 85007; 85018; 85025; 85347; 85384; 85610; 85730; 86885; 86900; 86901; 86920; 87081; 88300; 93005; 93312; 93325; 93880; 93970; 94002; 94660; 94760; 97116; 97161; 97530; A4215; A4615; A4618; A6258; A6446; A6449; A7000; A7048; C1751; G0378; J0171; J0665; J0690; J1250; J1644; J1815; J1940; J2003; J2060; J2150; J2270; J2704; J2919; J3370; J3480; J3490; J7030; J7040; J7050; J7120; P9035; P9045; P9047

== ENCOUNTER 2024-09-15 08:25 | Outpatient (CLI) | payer MEDICARE ==
[~2024-09-15 08:25] MED LIST changes: +DOCU100C40 PO; +ERGO500054 PO; +FURO-150 PO; +HYDR-3973 PO; +LEVO100T PO; -LEVO88TA7 PO; -LOSA50TA64 PO; +MELA3CAP2 PO; +OMEP20TA43 PO; +POLY119P2 PO; +SODI1TAB2 PO
[2024-09-15] MEDS ORDERED: DIPH25CA83 PO (15:27)
[2024-09-15] MEDS ORDERED: HYDR28CR14 TOP (15:27)
== END 2024-09-15 23:59 | disposition home or self-care (01) ==
LOC: CARD DIAG 08:25
PROVIDERS: ATTEND Nurse Practitioner Family
DX: J90 Pleural effusion, not elsewhere classified (principal); Z95.2 Presence of prosthetic heart valve; I50.22 Chronic systolic (congestive) heart failure; I34.81 Nonrheumatic mitral (valve) annulus calcification; Z95.1 Presence of aortocoronary bypass graft; Z87.448 Personal history of other diseases of urinary system
CPT/HCPCS: 76700; 93306

== ENCOUNTER 2024-09-15 10:35 | Emergency (ER) | payer MEDICARE ==
[~2024-09-15] VITALS: Ht 180.3 cm; Wt 123.6 kg
[2024-09-15 10:54] VITALS: BP 120/64; TEMP 97.8
[2024-09-15] MEDS: hydrocortisone 1% cream 28gm TP ONE (14:27)
[2024-09-15] MEDS: diphenhydrAMINE 50 mg/ml inj IM ONE (14:27)
[2024-09-15 14:59] LABS: BASOPHILS # (AUTO) 0.1 X10'3 (0-0.2); BASOPHILS % (AUTO) 0.7 % (0-1); EOSINOPHILS # (AUTO) 1.2 X10'3 (0-0.9); EOSINOPHILS % (AUTO) 11.9 % (0-6); HEMATOCRIT 37.8 % (42.0-52.0); HEMOGLOBIN 11.9 g/dl (14.0-17.9); LYMPHOCYTES # (AUTO) 0.7 X10'3 (1.1-4.8); LYMPHOCYTES % (AUTO) 7.3 % (21-51); MEAN CORPUSCULAR HEMOGLOBIN 26.3 PG (27.0-31.0); MEAN CORPUSCULAR HGB CONC 31.4 g/dL (33.0-36.5); MEAN CORPUSCULAR VOLUME 83.7 FL (78-98); MEAN PLATELET VOLUME 8.5 FL (7.4-10.4); MONOCYTES # (AUTO) 0.6 X10'3 (0-0.9); MONOCYTES % (AUTO) 5.9 % (2-12); NEUTROPHILS # (AUTO) 7.3 X10'3 (1.8-7.7); NEUTROPHILS % (AUTO) 74.2 % (42-75); PLATELET COUNT 226 X10'3 (140-440); RED BLOOD COUNT 4.51 X10'6 (4.70-6.10); RED CELL DISTRIBUTION WIDTH 19.8 % (11.5-14.5); WHITE BLOOD COUNT 9.8 X10'3 (4.5-11.0)
[2024-09-15 15:00] VITALS: RESP 20
[2024-09-15 15:05] LABS: ALANINE AMINOTRANSFERASE 84 U/L (12-78); ALBUMIN 2.9 G/DL (3.4-5.0); ALBUMIN/GLOBULIN RATIO 0.6 (1.1-1.5); ALKALINE PHOSPHATASE 229 IU/L (46-116); ANION GAP 7 (8-16); ASPARTATE AMINO TRANSFERASE 75 U/L (10-37); BILIRUBIN,TOTAL 1.5 MG/DL (0.1-1.0); BLOOD UREA NITROGEN 18 MG/DL (7-18); BUN/CREATININE RATIO 14.8 (10.0-20.0); CALCIUM 8.9 MG/DL (8.5-10.1); CHLORIDE 99 MMOL/L (99-107); CREATININE 1.22 MG/DL (0.60-1.10); GLUCOSE 148 MG/DL (70-104); POTASSIUM 3.6 MMOL/L (3.5-5.1); SODIUM 135 MMOL/L (135-145); TOTAL CARBON DIOXIDE 29.3 MMOL/L (24-32); TOTAL PROTEIN 7.8 G/DL (6.4-8.2); eCRCL 61 ML/MIN; eGFR 59 ML/MIN
[2024-09-15 15:13] LABS: PRO BRAIN NATRIURETIC PEPTIDE 2768 PG/ML (0-125)
[2024-09-15] MEDS ORDERED: DIPH25CA83 PO (15:27)
[2024-09-15] MEDS ORDERED: HYDR28CR14 TOP (15:27)
[2024-09-15 16:16] VITALS: PULSE 90; O2SAT 97
== END 2024-09-15 16:18 | disposition home or self-care (01) ==
LOC: ER 10:36
DX: L23.9 Allergic contact dermatitis, unspecified cause (principal); D64.9 Anemia, unspecified; E78.00 Pure hypercholesterolemia, unspecified; I11.0 Hypertensive heart disease with heart failure; I50.9 Heart failure, unspecified; F12.90 Cannabis use, unspecified, uncomplicated; I25.10 Atherosclerotic heart disease of native coronary artery without angina pectoris; Z88.0 Allergy status to penicillin; Z88.1 Allergy status to other antibiotic agents; Z88.8 Allergy status to other drugs, medicaments and biological substances; Z91.041 Radiographic dye allergy status; Z79.82 Long term (current) use of aspirin
CPT/HCPCS: 36415; 71045; 80053; 83880; 84484; 85025; 93005; 96372; 99285; J1200